=== PATIENT | male | born 1970 | race Caucasian/White ===

== ENCOUNTER 2021-04-12 12:39 | Emergency (ER) | payer OTHER ==
[~2021-04-12] VITALS: Ht 172.7 cm; Wt 75.0 kg
--- NOTE | 2021-04-12 13:11 | PHYS DOC ---
Past History Past Surgical History: Other Additional Past Surgical Histo: VASECTOMY (PAT HUSSEIN APRN) Alcohol Use: None (PAT HUSSEIN APRN) General Adult EDM: Chief Complaint: HYPERTENSION HPI: HPI: Patient is a 50-year-old male who presents to the emergency department for increased vision loss in his right eye. 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 They told patient to follow-up with her mortar mixer operator and take a baby aspirin daily. He reports that he woke up this morning and noticed that the blurred vision has gotten worse and he called the eye doctors and they told him to check his blood pressure, he states that it was 170 over 90s at home and they told him to go to the emergency department. Patient has never had any brain imaging. He has a history of hypertension and high cholesterol. His mortar mixer operator is Dr. Syed at [facility]. Patient denies any chest pain or shortness of breath. (PAT HUSSEIN APRN) Review of Systems: Review of Systems: Constitutional: negative unless reported in HPI Eyes: negative unless reported in HPI HENT: negative unless reported in HPI Respiratory: negative unless reported in HPI Cardiovascular: negative unless reported in HPI GI: negative unless reported in HPI : negative unless reported in HPI Musculoskeletal: negative unless reported in HPI Integument: negative unless reported in HPI Neurologic: negative unless reported in HPI Endocrine: negative unless reported in HPI Lymphatic: negative unless reported in HPI Psychiatric: negative unless reported in HPI (PAT HUSSEIN APRN) Allergies: Allergies: Allergies Coded Allergies Type Severity Reaction Last Updated Verified No Known Drug Allergies 04/12/21 No (PAT HUSSEIN APRN) Physical Exam: PE: Constitutional: Well developed, well nourished, no acute distress, non-toxic appearance. [] HENT: Normocephalic, atraumatic, bilateral external ears normal, oropharynx moist, no oral exudates, nose normal. [] Eyes: PERRLA, 4 mm bilaterally, EOMI, conjunctiva normal, no discharge. [] Neck: Normal range of motion, no tenderness, supple, no stridor. [] Cardiovascular:Heart rate regular rhythm, no murmur [] Lungs & Thorax: Bilateral breath sounds clear to auscultation [] Abdomen: Bowel sounds normal, soft, no tenderness, no masses, no pulsatile rochelle s. [] Skin: Warm, dry, no erythema, no rash. [] Back: Normal range of motion Extremities: No tenderness, no cyanosis, no clubbing, ROM intact, no edema. [] Neurologic: Alert and oriented X 3, normal motor function, normal sensory function, no focal deficits noted. [] Psychologic: Affect normal, judgement normal, mood normal. [] (PAT HUSSEIN APRN) Current Patient Data: Labs: Laboratory Tests Test 04/12/21 13:17 White Blood Count 6.8 x10^3/uL Red Blood Count 4.77 x10^6/uL Hemoglobin 14.6 g/dL Hematocrit 43.2 % Mean Corpuscular Volume 90 fL Mean Corpuscular Hemoglobin 31 pg Mean Corpuscular Hemoglobin Concent 34 g/dL Red Cell Distribution Width 12.9 % Platelet Count 230 x10^3/uL Neutrophils (%) (Auto) 81 % Lymphocytes (%) (Auto) 13 % Monocytes (%) (Auto) 6 % Eosinophils (%) (Auto) 0 % Basophils (%) (Auto) 0 % Neutrophils # (Auto) 5.5 x10^3uL Lymphocytes # (Auto) 0.9 x10^3/uL Monocytes # (Auto) 0.4 x10^3/uL Eosinophils # (Auto) 0.0 x10^3/uL Basophils # (Auto) 0.0 x10^3/uL Sodium Level 136 mmol/L Potassium Level 3.9 mmol/L Chloride Level 100 mmol/L Carbon Dioxide Level 27 mmol/L Anion Gap 9 Blood Urea Nitrogen 12 mg/dL Creatinine 0.8 mg/dL Estimated GFR (Cockcroft-Gault) 101.5 BUN/Creatinine Ratio 15 Glucose Level 93 mg/dL Calcium Level 8.7 mg/dL Total Bilirubin 0.4 mg/dL Aspartate Amino Transf (AST/SGOT) 17 U/L Alanine Aminotransferase (ALT/SGPT) 26 U/L Alkaline Phosphatase 80 U/L Troponin I High Sensitivity 5 ng/L Total Protein 7.3 g/dL Albumin 4.1 g/dL Albumin/Globulin Ratio 1.3 Current Medications Medications (Trade) Dose Ordered Sig/[place] Route PRN Reason Start Time Stop Time Status Last Admin Dose Admin Iohexol (Omnipaque 350 Mg/ml) 100 ml 1X ONCE IV 04/12/21 13:15 04/12/21 13:18 DC 04/12/21 13:22 Vital Signs: Vital Signs Date Time Temp Pulse Resp B/P (MAP) Pulse Ox O2 Delivery O2 Flow Rate FiO2 04/12/21 12:56 97.9 77 18 175/92 (119) 96 Room Air (PAT HUSSEIN CALENDER WIND UP TENDER) EKG: EKG: EKG performed by ER staff at 1258 shows sinus rhythm with a bundle branch block with a rate of 69, QTc 447, no STEMI read by Dr. Adam at 1309. [] (PAT HUSSEIN CALENDER WIND UP TENDER) Radiology/Procedures: Radiology/Procedures: []PROCEDURE: CT ANGIOGRAPHY HEAD AND NECK EXAM: CTA HEAD AND NECK W/WO CONTRAST DATE: 04/12/2021 1:28 PM INDICATION: branch off of the retinal artery occluded, vision loss TECHNIQUE: CTA angiogram of the head and neck was obtained administration of intravenous contrast. The images were sent to workstation and multiplanar reconstructions were obtained. Multiplanar reconstruction images to include MIP and 3-D reconstruction images are submitted. One or more of the following dose reduction techniques were utilized: Automated exposure control (AEC), Adjustment of mA and/or kV according to patient size, Use of iterative reconstruction technique such as ASiR, CT scan done according to ALARA and image gently/image wisely COMPARISON: None. FINDINGS: CTA Head: The visualized distal internal carotid arteries, anterior and middle cerebral arteries are patent and normal caliber. The distal vertebral arteries, basilar artery, and posterior cerebral arteries are patent and normal caliber. No aneurysm or arteriovenous malformation is seen. CTA Neck: Right carotid: The right common carotid artery is patent and normal caliber. Mild atherosclerosis of the carotid bifurcation. No stenosis of the right internal carotid artery per NASCET criteria. The right external carotid artery is patent. Left carotid: The left common carotid artery is patent and normal caliber. Mild atherosclerosis of the carotid bifurcation. No stenosis of the left internal carotid artery per NASCET criteria. The left external carotid artery is patent. Right vertebral: The right vertebral artery is patent and normal caliber. Left vertebral: The left vertebral artery is patent and normal caliber. The visualized portions of the aortic arch are normal. The origins of the brachiocephalic and subclavian arteries are normal. Scattered mildly enlarged cervical and supraclavicular lymph nodes. The thyroid gland is normal. The parotid and submandibular glands are normal. The visualized aerodigestive tract is unremarkable. The cervical spine is normal. The visualized portions of the lungs are clear. IMPRESSION: 1. No intracranial large vessel occlusion. 2. No stenosis of the cervical carotid or vertebral arteries. 3. Scattered mildly enlarged cervical and supraclavicular lymph nodes. Clinical correlation is advised. PQRS Compliance Statement - Stenosis calculations for CT, MR and conventional angiography are based upon measurement of the distal ICA diameter in accordance with the NASCET methodology. Electronically signed by: Alhaji Leon MD (04/12/2021 1:52 PM) [id number] DICTATED AND SIGNED BY: ALHAJI LEON MD DATE: 04/12/21 1341 CC: EMERGENCY,DEPARTMENT; PAT HUSSEIN APRN; ALICIA VILLAFANA DO, [facility] ~MTH0 0 (PAT HUSSEIN APRN) Heart Score: C/O Chest Pain: No Risk Factors: Risk Factors: DM, Current or recent (<one month) smoker, HTN, HLP, family history of CAD, obesity. Risk Scores: Score 0 - 3: 2.5% MACE over next 6 weeks - Discharge Home Score 4 - 6: 20.3% MACE over next 6 weeks - Admit for Clinical Observation Score 7 - 10: 72.7% MACE over next 6 weeks - Early Invasive Strategies (PAT HUSSEIN APRN) Course & Med Decision Making: Course & Med Decision Making Pertinent Labs and Imaging studies reviewed. (See chart for details) [] Patient presents to the emergency department for increased blurred vision in his right eye after being diagnosed with a branch retinal artery occlusion. Patient reports that he checked his blood pressure 2-day and it was elevated at home. He takes that he takes an BREANN inhibitor for his blood pressure and has been taking them as directed. His blood pressure in the emergency department is mildly elevated at 170/92. Work-up in the ER consisted of blood work, EKG and CTA of head and neck. Blood work was unremarkable with no evidence of end organ failure. Patient scan of his head and neck showed mild atherosclerosis but no stenosis or occlusions. Patient advised to continue taking his blood pressure medications and monitor his blood pressure daily and keep a log to follow-up with his primary care provider about it. Blood pressure recheck was 140/90. I discussed with patient all findings and diagnostic testing as well as the need to follow-up with PCP for further evaluation and treatment or return to the ER if any new or worsening symptoms. Strict return precautions were also discussed at length. Patient voiced understanding and agreement with the plan. Patient is hemodynamically stable at the time of disposition. (PAT HUSSEIN APRN) Dragon Disclaimer: Dragon Disclaimer: This electronic medical record was generated, in whole or in part, using a voice recognition dictation system. (PAT HUSSEIN APRN) Attending Co-Sign The patient was seen and interviewed as well as examined at the bedside. The chart was reviewed. The case was discussed. Agree with the plan of care. (SAMY ADAM DO) Departure Departure: Impression: Primary Impression: Hypertension Qualified Codes: I10 - Essential (primary) hypertension Disposition: HOME / SELF CARE / HOMELESS Condition: GOOD Referrals: ALICIA VILLAFANA DO, M[facility] (PCP) Patient Instructions: Hypertension Additional Instructions: You were seen in the emergency department today for elevated blood pressure. Your blood work in the emergency department was unremarkable. The CT scan of your head and neck showed mild atherosclerosis but no stenosis or occlusion. Please take the report with you to your mortar mixer operator when you follow-up. Please continue to take your blood pressure medication as directed. Monitor your blood pressures daily and keep a log. Continue taking the daily aspirin that was suggested to you by your melter supervisor. I would strongly urge you to f ollow-up with your mortar mixer operator as soon as possible, call their office today to try to set up a follow-up appointment sooner. I would like you to follow-up with your primary care provider tomorrow if possible. If you continue to have vision changes I would not drive a vehicle or operate any heavy machinery. Return to the emergency department if you develop worsening of your vision, chest pain, shortness of breath, unilateral weakness, speech problems, difficulty walking, balance issues or poor coordination. PAT HUSSEIN APRN Apr 12, 2021 13:11 SAMY ADAM DO Apr 13, 2021 10:03
[2021-04-12] MEDS ORDERED: IOHEXOL 350 MG/ML 100 ML VIAL. IV ONE (13:15)
--- NOTE | 2021-04-12 13:27 | EKG ---
[address] [address] Test Date: 2021-04-12 Test Time: 12:58:39 Pat Name: SAVANNAH GALLEGOS Department: Room: Gender: M Regulatory Affairs Analyst: S5 : 1970 Requested By: PAT HUSSEIN Order Number: [id number] Reading MD: Abel Mantilla Measurements Intervals [place] Rate: 69 P: 49 DC: 174 QRS: -7 QRSD: 132 T: 51 QT: 416 QTc: 447 Interpretive Statements SINUS RHYTHM LEFTWARD AXIS LEFT BUNDLE BRANCH BLOCK ABNORMAL ECG RI6.02 No previous ECG available for comparison Electronically Signed On 04-13-2021 15:17:19 BINDER TECHNICIAN by Abel Mantilla
[2021-04-12 13:32] LABS: BASO % 0 % (0-3); EOS % 0 % (0-3); HEMATOCRIT 43.2 % (39.0-53.0); HEMOGLOBIN 14.6 g/dL (13.0-17.5); LYMPH # 0.9 x10^3/uL (1.0-4.8); LYMPH % 13 % (24-48); MEAN CORPUSCULAR HEMOGLOBIN 31 pg (25-35); MEAN CORPUSCULAR HGB CONC 34 g/dL (31-37); MEAN CORPUSCULAR VOLUME 90 fL (79-100); MONO # 0.4 x10^3/uL (0.0-1.1); MONO % 6 % (0-9); NEUT # 5.5 x10^3uL (1.8-7.7); NEUT % 81 % (31-73); PLATELET COUNT 230 x10^3/uL (140-400); RED BLOOD COUNT 4.77 x10^6/uL (4.30-5.70); RED CELL DISTRIBUTION WIDTH 12.9 % (11.5-14.5); WHITE BLOOD COUNT 6.8 x10^3/uL (4.0-11.0)
[2021-04-12 13:44] LABS: CALCIUM 8.7 mg/dL (8.5-10.1); CREATININE 0.8 mg/dL (0.7-1.3); GFR 101.5; POTASSIUM 3.9 mmol/L (3.5-5.1)
[2021-04-12 13:50] LABS: ALBUMIN 4.1 g/dL (3.4-5.0); ALBUMIN/GLOBULIN RATIO 1.3 (1.0-1.7); TOTAL BILIRUBIN 0.4 mg/dL (0.2-1.0); TOTAL PROTEIN 7.3 g/dL (6.4-8.2)
--- NOTE | 2021-04-12 13:54 | RAD ---
EXAM: CTA HEAD AND NECK W/WO CONTRAST DATE: 04/12/2021 1:28 PM INDICATION: branch off of the retinal artery occluded, vision loss TECHNIQUE: CTA angiogram of the head and neck was obtained administration of intravenous contrast. Th e images were sent to workstation and multiplanar reconstructions were obtained. Multiplanar reconst ruction images to include MIP and 3-D reconstruction images are submitted. One or more of the following dose reduction techniques were utilized: Automated exposure control (AEC ), Adjustment of mA and/or kV according to patient size, Use of iterative reconstruction technique da silva ch as ASiR, CT scan done according to ALARA and image gently/image wisely COMPARISON: None. FINDINGS: CTA Head: The visualized distal internal carotid arteries, anterior and middle cerebral arteries are patent and normal caliber. The distal vertebral arteries, basilar artery, and posterior cerebral arteries are p atent and normal caliber. No aneurysm or arteriovenous malformation is seen. CTA Neck: Right carotid: The right common carotid artery is patent and normal caliber. Mild atherosclerosis of the carotid bifurcation. No stenosis of the right internal carotid artery per NASCET criteria. The ri ght external carotid artery is patent. Left carotid: The left common carotid artery is patent and normal caliber. Mild atherosclerosis of th e carotid bifurcation. No stenosis of the left internal carotid artery per NASCET criteria. The left external carotid artery is patent. Right vertebral: The right vertebral artery is patent and normal caliber. Left vertebral: The left vertebral artery is patent and normal caliber. The visualized portions of the aortic arch are normal. The origins of the brachiocephalic and subclav anshu arteries are normal. Scattered mildly enlarged cervical and supraclavicular lymph nodes. The thyroid gland is normal. The parotid and submandibular glands are normal. The visualized aerodigestive tract is unremarkable. The cervical spine is normal. The visualized portions of the lungs are clear. IMPRESSION: 1. No intracranial large vessel occlusion. 2. No stenosis of the cervical carotid or vertebral arteries. 3. Scattered mildly enlarged cervical and supraclavicular lymph nodes. Clinical correlation is advise d. RS Compliance Statement - Stenosis calculations for CT, MR and conventional angiography are based u jyotsna measurement of the distal ICA diameter in accordance with the NASCET methodology. Electronically signed by: Nimesh Leon MD (04/12/2021 1:52 PM) [id number]
[2021-04-12 14:22] VITALS: BP 140/90
== END 2021-04-12 14:22 | disposition home or self-care (01) ==
LOC: ER 12:50
DX: I10 Essential (primary) hypertension (principal); H54.61 Unqualified visual loss, right eye, normal vision left eye; H53.8 Other visual disturbances; E78.00 Pure hypercholesterolemia, unspecified
CPT/HCPCS: 36415; 70496; 70498; 80053; 84484; 85025; 93005; 99285; Q9967